=== PATIENT | female | born 1970 | race Hispanic/Latino ===

== ENCOUNTER 2019-01-11 19:32 | Inpatient (IN) | payer MEDICAID ==
[2019-01-11 20:01] LABS: BASO # 0.1 K/uL (0.0-0.2); BASO % 1.2 % (0.0-2.0); EOS # 0.2 K/uL (0.0-0.7); EOS % 2.5 % (0.0-4.0); HEMOGLOBIN 14.9 g/dL (11.0-16.0); LYMPH # 1.6 K/uL (1.0-4.3); MEAN CELL VOLUME 96.6 fL (81.0-99.0); MEAN CORPUSCULAR HEMOGLOBIN 32.9 pg (27.0-31.0); MEAN PLATELET VOLUME 8.7 fL (7.2-11.7); MONO # 0.7 K/uL (0.0-0.8); MONO % 8.6 % (0.0-10.0); NEUT # 5.4 K/uL (1.8-7.0); NEUT % 67.7 % (50.0-75.0); NRBC % 0.1 % (0.0-2.0); RBC 4.53 Mil/uL (3.80-5.20); RED CELL DISTRIBUTION WIDTH 15.7 % (11.5-14.5)
[2019-01-11 20:06] LABS: SQUAMOUS EPITHIAL 8 /hpf (0-5); URINE BACTERIA FEW (<OCC); URINE BILIRUBIN NEGATIVE (NEGATIVE); URINE BLOOD NEGATIVE (NEGATIVE); URINE CLARITY Hazy (Clear); URINE COLOR Yellow (YELLOW); URINE GLUCOSE (UA) NORMAL (Normal); URINE LEUKOCYTE ESTERASE NEG Leu/uL (Negative); URINE PROTEIN NEGATIVE (NEGATIVE); URINE UROBILINOGEN NORMAL mg/dL (0.2-1.0)
[2019-01-11 20:14] LABS: ALB/GLOB RATIO 1.6 (1.0-2.1); ALBUMIN 4.6 g/dL (3.5-5.0); ALT/SGPT 29 U/L (9-52); AST/SGOT 68 U/L (14-36); BLOOD UREA NITROGEN 7 mg/dL (7-17); CALCIUM 8.8 mg/dl (8.6-10.4); GFR NON-AFRICAN AMERICAN > 60
[2019-01-11 20:25] LABS: BARBITURATES, UR NEGATIVE (NEGATIVE); BENZODIAZEPINES, UR NEGATIVE (NEGATIVE); OPIATES, UR NEGATIVE (NEGATIVE); PHENCYCLIDINE, UR NEGATIVE (NEGATIVE)
--- NOTE | 2019-01-11 21:38 | C.PDOC ---
History Of Present Illness 48 year old female presents to the emergency department for detox from alcohol. Patient cannot quantify how much she drinks, but states that her last drink was several hours ago. Patient denies other drug use but states that she takes Suboxone. Patient denies suicidal/homicidal ideation. Time Seen by Provider: 01/11/19 19:50 Chief Complaint (Nursing): Substance Abuse History Per: Patient History/Exam Limitations: no limitations Onset/Duration Of Symptoms: Hrs Current Symptoms Are (Timing): Still Present Suicide/Self Injury Attempted (Context): None Modifying Factor(s): Alcohol, Other Associated Symptoms: denies: Suicidal Thoughts, Suicidal Plan Past Medical History Reviewed: Historical Data, Nursing Documentation, Vital Signs Vital Signs: Last Vital Signs Temp 98.2 F 01/11/19 19:35 Pulse 102 H 01/11/19 19:35 Resp 18 01/11/19 19:35 BP 158/96 H 01/11/19 19:35 Pulse Ox 96 01/11/19 19:35 - Medical History PMH: Seizures (alcohol related) Surgical History: Appendectomy Family History: States: No Known Family Hx - Social History Hx Alcohol Use: Yes Hx Substance Use: Yes (prior poly substance abuser) - Immunization History Hx Tetanus Toxoid Vaccination: Yes Hx Influenza Vaccination: Yes Hx Pneumococcal Vaccination: Yes Review Of Systems Constitutional: Negative for: Fever, Chills Cardiovascular: Negative for: Chest Pain Respiratory: Negative for: Cough, Shortness of Breath Gastrointestinal: Negative for: Nausea, Vomiting, Abdominal Pain, Diarrhea Neurological: Positive for: Other (alcohol intoxication) Psych: Negative for: Suicidal ideation Physical Exam - Physical Exam Appears: Non-toxic, No Acute Distress, Other (tearful) Skin: Warm, Dry Head: Atraumatic, Normacephalic Eye(s): bilateral: Normal Inspection, PERRL, EOMI Nose: Normal Oral Mucosa: Moist, Other (alcohol on breath) Neck: Normal, Supple Chest: Symmetrical, No Tenderness Cardiovascular: Rhythm Regular (tachycardic), No Murmur Respiratory: Normal Breath Sounds, No Rales, No Rhonchi, No Wheezing Gastrointestinal/Abdominal: Soft, No Tenderness, No Guarding, No Rebound Extremity: Normal ROM Neurological/Psych: Oriented x3, Normal Speech, Normal Cognition ED Course And Treatment - Laboratory Results Result Diagrams: 01/11/19 19:58 01/11/19 19:58 Lab Results: Total Bilirubin 0.8 mg/dL (0.2-1.3) 01/11/19 19:58 AST 68 U/L (14-36) H 01/11/19 19:58 ALT 29 U/L (9-52) 01/11/19 19:58 Alkaline Phosphatase 89 U/L (38-126) 01/11/19 19:58 Total Protein 7.5 g/dL (6.3-8.3) 01/11/19 19:58 Albumin 4.6 g/dL (3.5-5.0) 01/11/19 19:58 Globulin 2.8 gm/dL (2.2-3.9) 01/11/19 19:58 Albumin/Globulin Ratio 1.6 (1.0-2.1) 01/11/19 19:58 Urine Color Yellow (YELLOW) 01/11/19 20:01 Urine Clarity Hazy (Clear) 01/11/19 20:01 Urine pH 6.0 (5.0-8.0) 01/11/19 20:01 Ur Specific [place] 1.003 (1.003-1.030) 01/11/19 20:01 Urine Protein Negative mg/dL (NEGATIVE) 01/11/19 20:01 Urine Glucose (UA) Normal mg/dL (Normal) 01/11/19 20:01 Urine Ketones Negative mg/dL (NEGATIVE) 01/11/19 20:01 Urine Blood Negative (NEGATIVE) 01/11/19 20:01 Urine Nitrate Negative (NEGATIVE) 01/11/19 20:01 Urine Bilirubin Negative (NEGATIVE) 01/11/19 20:01 Urine Urobilinogen Normal mg/dL (0.2-1.0) 01/11/19 20:01 Ur Leukocyte Esterase Neg Susi/uL (Negative) 01/11/19 20:01 Urine WBC (Auto) 3 /hpf (0-5) 01/11/19 20:01 Urine RBC (Auto) < 1 /hpf (0-3) 01/11/19 20:01 Ur Squamous Epith Cells 8 /hpf (0-5) H 01/11/19 20:01 Urine Bacteria Few (<OCC) H 01/11/19 20:01 O2 Sat by Pulse Oximetry: 96 (RA) Pulse Ox Interpretation: Normal Medical Decision Making Medical Decision Making: Plan: Chemistry CBC Glucose POC Urinalysis Patient medically cleared, evaluated by crisis, and accepted for detox admission by Dr. Flynn. Vitals improved- HR 80 and BP 130/90 at time of disposition. Disposition - Disposition Disposition: HOSPITALIZED Disposition Time: 22:11 Condition: FAIR - Clinical Impression Clinical Impression: Alcohol abuse - Scribe Statement The provider has reviewed the documentation as recorded by the Scribe (Jimbo Ma) Provider Attestation: All medical record entries made by the Scribe were at my direction and personally dictated by me. I have reviewed the chart and agree that the record accurately reflects my personal performance of the history, physical exam, medical decision making, and the department course for this patient. I have also personally directed, reviewed, and agree with the discharge instructions and disposition.
--- NOTE | 2019-01-12 00:30 | PCM.BM ---
<Lawrence Contreras - Last Filed: 01/12/19 00:27> Treatment Plan Problems - Problems identified on initial assessmt Defensive Coping Date Initiated: 01/11/19 Time Initiated: 11:45 Status: Active Knowledge Deficit: Alcohol Use Date Initiated: 01/11/19 Time Initiated: 11:45 Assessment reference: NA Status: Active Anxiety R/T Substance Use Date Initiated: 01/11/19 Time Initiated: 11:45 Assessment reference: NA Status: Active Treatment assets and liabiliti Patient Assests: cooperative, ADL independent, physically healthy, cognitively intact Patient Liabilities: substance abuse - Milieu Protocol Maintain good personal hygiene: daily Encourage regular showers, daily Remind patient to perform daily oral care, daily Assist patient to perform ADL's Conduct patient checks and document Observation sheet: Q15 minutes Maintain personal safety: every shift Educate patient to report safety concerns to staff, every shift Monitor environment for contraband/sharps Medication safety: Monitor for expected outcome, potential side effects: every shift, Assess barriers to learning: every shift, Assess readiness for medication education: every shift <Tomi Flynn - Last Filed: 01/12/19 22:38> - Diagnosis (1) Alcohol use disorder, severe, dependence Status: Acute Interventions: 01/12/19 22:38 * Assess 7x/week regarding severity of withdrawal * Educate regarding risks, benefits, side effects and alternatives of medications * Use Motivational Interviewing for abstinence * Use CBT for relapse prevention * Medication management for withdrawal symptoms * Encourage medication assisted treatment * <Lorenza Mendosa - Last Filed: 01/14/19 11:45> Family Contact Family involvement: Famliy/SO not involved - Goals for Treatment Patient goals for treatment: Complete detox and transition to an IOP. Discharge/Continuing Care - Education Needs Education Needs: Patient Medication, Patient Diagnosis/Disease Process, Patient Coping Skills, Patient Anger Management skills, Patient Placement options, Patient Community resources - Discharge Discharge Criteria: No longer exhibiting s/s of withdrawal, Reduction of target symptoms Discharge to:: Home - Treatment Team Participation Patient/Family/SO Statement: 01/14/19 11:45 "I'm not sure...maybe an IOP..." Discussed with Family/SO: No Was Patient/Family/SO present at Treatment Team Meeting: Yes
[2019-01-12] MEDS: Multiple Vitamins Tab PO SCH (09:36)
--- NOTE | 2019-01-12 11:02 | PCM.PSYCH ---
Initial Psychiatric Evaluation - Initial Psychiatric Evaluation Type of Admission: Voluntary Legal Status: Capacity Chief Complaint (in patient's own words): requesting detox History of Present Illness and Precipitating Events: Patient is a 48 year old single female who presents for detox from alcohol and opiates at the request of her boyfriend. Patient is unemployed and lives with her mother who cares for patient financially. She has 2 children(ages 10 and 18, who live with their father in [place]). Patient has been drinking approximately 2 pts of alcohol daily for many years and reports a history of withdrawal seizures with last episode 1 month ago; patient reports being started on 2 antiepileptic medications at that time, topamax and another unknown. Patient also has a recent history of subutex use(8-16mg daily) stemming from a history of heroin use. Patient reports a history of multiple attempts at detox and rehab and states she is determined to stay clean. PsychHx: Depression, anxiety, PTSD, alcohol use disorder, opiate use disorder PMHx: Fibromyalgia, HTN FPHx: sisters with depression/anxiety and substance use disorders Current Medications: Active Medications Generic Name Dose Route Start Last Admin Trade Name Freq PRN Reason Stop Dose Admin Chlordiazepoxide 25 mg 01/11/19 23:34 01/12/19 00:11 Librium PO 25 mg Q4H PRN Administration Alcohol Withdrawal Chlordiazepoxide 25 mg 01/12/19 10:00 01/12/19 09:36 Librium PO 01/17/19 09:59 25 mg Q6H DENAE Administration Taper Clonidine HCl 0.1 mg 01/11/19 23:34 01/12/19 00:11 Catapres PO 0.1 mg Q4H PRN Administration Symptoms of alcohol withdrawl Folic Acid 1 mg 01/12/19 10:00 01/12/19 09:35 Folic Acid PO 1 mg DAILY DENAE Administration Gabapentin 400 mg 01/12/19 14:00 Neurontin PO TID [facility] Hydroxyzine HCl 50 mg 01/11/19 23:36 01/12/19 00:11 Atarax PO 50 mg Q6H PRN Administration Anxiety Ibuprofen 600 mg 01/11/19 23:36 Motrin Tab PO Q6H PRN Pain, moderate (4-7) Multivitamins 1 tab 01/12/19 10:00 01/12/19 09:36 Hexavitamin PO 1 tab DAILY DENAE Administration Nicotine 1 patch 01/12/19 10:30 01/12/19 10:43 Nicoderm Cq TD 1 patch DAILY DENAE Administration Thiamine HCl 100 mg 01/12/19 10:00 01/12/19 09:35 Vitamin B1 Tab PO 100 mg DAILY DENAE Administration Topiramate 50 mg 01/12/19 18:00 Topamax PO BID DENAE Trazodone HCl 50 mg 01/11/19 23:34 01/12/19 00:11 Desyrel PO 50 mg HS PRN Administration Insomnia Past Psychiatric History - Past Psychiatric History Previous Treatment History: Inpatient Pertinent Medical Hx (Current Medical&Sleep Prob, Allergies): Allergies Allergy/AdvReac Type Severity Reaction Status Date / Time No Known Allergies Allergy Unverified 01/11/19 19:41 Unobtainable 01/11/19 Review of Systems - Constitutional Constitutional: Chills, Sweats - Gastrointestinal Gastrointestinal: Nausea. absent: Diarrhea, Vomiting - Psychiatric Psychiatric: Anxiety, Depression, Difficulty Concentrating. absent: Hallucinations, Paranoia, Suicidal Ideation Mental Status Examination - Personal Presentation Personal Presentation: Looks stated age - Motor Activity Motor Activity: Psychomotor Agitation Additional comments: Tremulous - Reliability in Providing Information Reliability in Providing Information: Fair - Speech Speech: Organized - Mood Mood: Anxious - Formal Thought Process Formal Thought Process: No Impairment - Cognitive Functions Orientation: Person, Place, Situation, Time Sensorium: Alert Estimate of Intelligence: Average Judgement: Intact, as evidence by: Insight regarding need for hospitalization Memory: Recent impaired, as evidence by: Inability to recall events of the day, Remote impaired as evidenced by: Inability to recall historical events - Risk Risk: Seizure, Withdrawal - Limitations Limitations: Decreased memory, recent DSM 5 DX - DSM 5 DSM 5 Diagnosis: Alcohol Use Disorder, severe Opiate Use Disorder, severe Generalized Anxiety Disorder Major Depressive Disorder PTSD - Recommended/Plan of Treatment Treatment Recommendations and Plan of Treatment: Taper with Librium, Subutex PRN medications, Librium, Clonidine, Atarax, Ibuprofen, Trazodone Gabapentin for augmentation Seizure ppx, Topamax All risks, benefits and treatment alternatives of medications discussed; patient understands and agrees Attend groups and activities Supportive therapy and psycho-education LA for abstinence CBT for relapse prevention Encourage MAT Refer to rehab or IOP, and self-help groups Teach healthy lifestyle methods(diet, exercise, meditation) Smoking cessation with Nicotine patch Discussed with Dr. Rina Santos, PGY-1 Projected ELOS: 5 days - Smoking Cessation Smoking Cessation Initiated: Yes
[2019-01-12] MEDS ORDERED: Petrolatum Oint Foilpak (5 gm) TOP PRN (11:15)
[2019-01-12] MEDS ORDERED: Buprenorphine Hydrochloride 2 mg SL ONE ×2 (12:02→13:02)
[2019-01-13] MEDS: Multiple Vitamins Tab PO SCH (09:27)
[2019-01-13] MEDS: Buprenorphine Hydrochloride 2 mg SL SCH (10:21)
--- NOTE | 2019-01-13 11:28 | PCM.PYCHPN ---
Psychiatric Progress Note - Psychiatric Progress Note Patient Chief Complaint: requesting detox Problems Identified/Issues Discussed: Patient reports overall she feels well, much improved since yesterday. She reports persistent hot/cold flashes, fogginess, tremors, photophobia and headache. Patient denies nausea, vomiting, diarrhea, anorexia. Medication Change: No Medical Record Reviewed: Yes Mental Status Examination - Cognitive Function Orientation: Person, Place, Situation, Time Memory: Intact - Mood Mood: Anxious - Affect Affect: Constricted - Speech Speech: Stammering - Language Language: Word Retrieval - Formal Thought Process Formal Thought Process: No Impairment - Suicidal Ideation Suicidal Ideation: No - Homicidal Ideation Homicidal Ideation: No Goal/Treatment Plan - Goal/Treatment Plan Need for Continued Stay: Remain at risks for inpatient hospitalization, Severe depression anxiety, Discharge may exacerbated symptoms Progress Toward Problem(s) and Goals/Treatment Plan: Taper with Librium, Subutex PRN medications, Librium, Clonidine, Atarax, Ibuprofen, Trazodone Gabapentin for augmentation Seizure ppx, Topamax All risks, benefits and treatment alternatives of medications discussed; patient understands and agrees Attend groups and activities Supportive therapy and psycho-education [place] for abstinence CBT for relapse prevention Encourage MAT Refer to rehab or IOP, and self-help groups Teach healthy lifestyle methods(diet, exercise, meditation) Smoking cessation with Nicotine patch Discussed with Dr. Rina Santos, PGY-1
[2019-01-14] MEDS: Benzocaine/Menthol (Cepacol) Lozenge MT PRN ×2 (05:21→14:58)
[2019-01-14] MEDS: Multiple Vitamins Tab PO SCH (09:18)
[2019-01-14] MEDS: Buprenorphine Hydrochloride 2 mg SL SCH (09:22)
--- NOTE | 2019-01-14 11:23 | PCM.PYCHPN ---
Psychiatric Progress Note - Psychiatric Progress Note Patient seen today, length of contact: 16 min Patient Chief Complaint: I want detox Problems Identified/Issues Discussed: Patient seen, chart reviewed and case discussed with staff Support and psycho-education provided, CBI and UT used briefly Patient is slowly improving and needs more time, still having ongoing symptoms Patient notes improvement in tremors and anxiety No side effects from medications, risks discussed After care discussed Medication Change: Yes Medical Record Reviewed: Yes Mental Status Examination - Cognitive Function Orientation: Person, Place, Situation, Time Memory: Intact Attention: WNL Concentration: WNL - Mood Mood: Neutral - Affect Affect: Constricted - Speech Speech: Appropriate - Formal Thought Process Formal Thought Process: No Impairment - Suicidal Ideation Suicidal Ideation: No - Homicidal Ideation Homicidal Ideation: No Goal/Treatment Plan - Goal/Treatment Plan Need for Continued Stay: Remain at risks for inpatient hospitalization, Severe depression anxiety, Discharge may exacerbated symptoms Progress Toward Problem(s) and Goals/Treatment Plan: Taper with Librium, Subutex PRN medications, Librium, Clonidine, Atarax, Ibuprofen, Trazodone Gabapentin for augmentation Seizure ppx, Topamax All risks, benefits and treatment alternatives of medications discussed; patient understands and agrees Attend groups and activities Supportive therapy and psycho-education [place] for abstinence CBT for relapse prevention Encourage MAT Refer to rehab or IOP, and self-help groups Teach healthy lifestyle methods(diet, exercise, meditation) Smoking cessation with Nicotine patch Discussed with Dr. Flynn -Juana Santos, PGY-1 Estimated Date of D/C: 01/16/19 - Smoking Cessation Smoking Cessation Initiated: Yes
[2019-01-15 06:06] VITALS: RESP 18
[2019-01-15] MEDS: Multiple Vitamins Tab PO SCH (09:42)
[2019-01-15] MEDS: Buprenorphine Hydrochloride 2 mg SL SCH (09:45)
--- NOTE | 2019-01-15 12:28 | PCM.PYCHPN ---
Psychiatric Progress Note - Psychiatric Progress Note Patient seen today, length of contact: 16 min Patient Chief Complaint: "Nervous" Problems Identified/Issues Discussed: The pt is seen, chart reviewed, case discussed with staff. The pt is compliant with medications and reports no side-effects. Symptoms are improving but needs more time to stabilize. Still has some shakes, and is anxious Pt attends groups and activities. Support given, psycho-education provided. After care discussed. Medication Change: Yes (detox changes daily) Medical Record Reviewed: Yes Mental Status Examination - Cognitive Function Orientation: Person, Place, Situation, Time Memory: Intact Attention: WNL Concentration: WNL - Mood Mood: Neutral - Affect Affect: Constricted - Speech Speech: Appropriate - Language Language: Word Retrieval - Formal Thought Process Formal Thought Process: No Impairment - Suicidal Ideation Suicidal Ideation: No - Homicidal Ideation Homicidal Ideation: No Goal/Treatment Plan - Goal/Treatment Plan Need for Continued Stay: Severe depression anxiety, Discharge may exacerbated symptoms, Severe functional impairment Progress Toward Problem(s) and Goals/Treatment Plan: Continue medications Support and psychoeducation daily Attend groups and activities daily After care planning by counselors Estimated Date of D/C: 01/16/19
[2019-01-15] MEDS: Benzocaine/Menthol (Cepacol) Lozenge MT PRN ×2 (14:20→22:57)
[2019-01-16 06:25] VITALS: BP 117/68; PULSE 68; TEMP 97.9; O2SAT 96
--- NOTE | 2019-01-16 08:42 | PCM.PYCHDC ---
Mental Status Examination - Mental Status Examination Orientation: Person Discharge Summary - Discharge Note Consultations:: List each consultation separately and include: 1. Reason for request. 2. Findings. 3. Follow-up Summary of Hospital Course include:: 1. Description of specific treatment plan utilized for patients during their course of treatmen. 2. Summarize the time- course for resolution of acute symptoms and/or regressed behaviors. 3. Describe issues identified and worked on during hospitalization. 4. Describe medication utilized. 5. Describe medical problems identified and treated. 6. Reassessment of suicide risk Summary of Hospital Course: She will return to her psychotherapist, see a psychiatristrohini to meetings, take the Topamax and others. She is not interested in IOP. - Diagnosis (1) Alcohol use disorder, severe, dependence Current Visit: Yes Status: Acute - Final Diagnosis (DSM 5) Condition upon Discharge: FAIR Disposition: HOME/ ROUTINE Follow-up Treatment Plan: Continue medications Support and psychoeducation daily Attend groups and activities daily After care planning by counselors Prescriptions/Medication Reconciliation: Gabapentin [Neurontin] 600 mg PO TID #90 tab hydrOXYzine HCl [Atarax] 50 mg PO BID PRN #60 tab PRN Reason: Anxiety Multivitamins [Hexavitamin] 1 tab PO DAILY #30 tab Topiramate [Topamax] 50 mg PO BID #60 tab traZODone [Desyrel] 50 mg PO HS PRN #30 tab PRN Reason: Insomnia
[2019-01-16] MEDS: Multiple Vitamins Tab PO SCH (09:02)
[2019-01-16] MEDS: Buprenorphine Hydrochloride 2 mg SL SCH (09:03)
== END 2019-01-16 09:30 | disposition home or self-care (01) | DRG 773 ==
LOC: C.ER 19:32 → C.9E 22:11 → C.7D 22:22
PROVIDERS: ADMIT Psychiatry & Neurology Psychiatry; ATTEND Psychiatry & Neurology Psychiatry
PROC: GZ56ZZZ Individual Psychotherapy, Supportive (ICD-10-PCS; principal; 2019-01-11)
DX: F10.20 Alcohol dependence, uncomplicated (principal); F11.10 Opioid abuse, uncomplicated; I10 Essential (primary) hypertension; F32.9 Major depressive disorder, single episode, unspecified; Y90.8 Blood alcohol level of 240 mg/100 ml or more; F41.1 Generalized anxiety disorder; M79.7 Fibromyalgia; F43.10 Post-traumatic stress disorder, unspecified